=== PATIENT | female | born 1990 | race Caucasian/White ===

== ENCOUNTER 2018-03-12 22:41 | Emergency (ER) | payer OTHER ==
[2018-03-12] MEDS ORDERED: DIPH,PERTUS(ACELL)TETVAC-LF 0.5 ML VIAL IM ONE (23:56)
--- NOTE | 2018-03-13 00:41 | ED ---
Wound/Laceration HPI - General Chief Complaint: Wound/Laceration Stated Complaint: leg lac Time Seen by Provider: 03/12/18 23:35 Source: patient, family, RN notes reviewed Mode of arrival: ambulatory Limitations: no limitations - History of Present Illness Initial Comments: This is a 28-year-old female who presented to the emergency department with chief complaint of left leg laceration. Patient states that prior to arrival she was making her bed. There is a whitish sticking out of the back of her couch and accidentally lacerated the back of her left leg on it. Patient states that she does not believe she is up-to-date with tetanus vaccination. Denies any other injuries or trauma. Denies fever, chills, chest pain, shortness of breath, abdominal pain, nausea or vomiting, constipation or diarrhea, dysuria or hematuria, numbness or tingling, headache or vision changes. - Related Data Home Medications Medication Instructions Recorded Confirmed ALPRAZolam [Xanax] 0.5 mg PO Q8HR 03/12/18 03/12/18 DULoxetine HCL [Cymbalta] 40 mg PO DAILY 03/12/18 03/12/18 clonazePAM [KlonoPIN] 0.5 mg PO TID 03/12/18 03/12/18 Allergies Allergy/AdvReac Type Severity Reaction Status Date / Time No Known Allergies Allergy Verified 03/12/18 22:46 Review of Systems ROS Statement: Those systems with pertinent positive or pertinent negative responses have been documented in the HPI. ROS Other: All systems not noted in ROS Statement are negative. Past Medical History Past Medical History: No Reported History History of Any Multi-Drug Resistant Organisms: None Reported Additional Past Surgical History / Comment(s): eye surgery Past Anesthesia/Blood Transfusion Reactions: No Reported Reaction Past Psychological History: Anxiety, Bipolar, Depression, Panic Disorder, Schizophrenia Smoking Status: Never smoker Past Alcohol Use History: Occasional Past Drug Use History: None Reported - Past Family History Father History Unknown: Yes General Exam - General Exam Comments Initial Comments: General: Awake and alert, well-developed; in no apparent distress. HEENT: Head atraumatic, normocephalic. Pupils are equal, round and reactive to light. Extraocular movements intact. Oropharynx moist without erythema or exudate. Neck: Supple. Normal ROM. Cardiovascular: Regular rate and rhythm. No murmurs, rubs or gallops. Chest symmetrical. Respiratory: Lungs clear to auscultation bilaterally. No wheezes, rales or rhonchi. Normal respiratory effort with no use of accessory muscles. Musculoskeletal: Normal ROM, no tenderness bilateral upper and lower extremities. Ambulating normally. Skin: Morley, warm and dry without rashes. Approximately 2.0 cm linear laceration mid lateral aspect of left thigh. No active bleeding. Neurological: Alert and oriented x3. CN II-XII grossly intact. Speech is fluent and answers are appropriate. No focal neuro deficits. Psychiatric: Normal mood and affect. No overt signs of depression or anxiety noted. Limitations: no limitations Course Vital Signs 03/12/18 22:43 Temperature 100 F H Pulse Rate 104 H Respiratory 20 Rate Blood Pressure 122/82 O2 Sat by Pulse 99 Oximetry Procedures - Laceration Laceration #1 Consent Obtained: verbal consent Indication: laceration Site: lower extremity (Left lateral thigh) Size (cm): 2 Description: linear Depth: simple, single layer Anesthetic Used: lidocaine 1% Anesthesia Technique: local infiltration Amount (mls): 7 Pre-repair: wound explored, irrigated extensively, deep structures intact Type of Sutures: nylon Size of Sutures: 4-0 Number of Sutures: 4 Technique: simple, interrupted Patient Tolerated Procedure: well, no complications Medical Decision Making - Medical Decision Making This is a 28-year-old female who presented to the emergency department chief complaint left leg laceration. Patient lacerated the lateral aspect of her left thigh and appears wire sticking out of her couch. Patient was made up-to- date with tetanus vaccination. 4 sutures were placed and patient tolerated well without complication. Recommended removal of sutures in the next 10-14 days. Patient is in no acute distress and will be discharged home at this time. She is in agreement with plan and voices understanding. All questions were answered. Disposition Clinical Impression: Laceration Disposition: HOME SELF-CARE Condition: Good Instructions: Laceration (ED) Additional Instructions: Please have sutures removed in 10-14 days. Please follow up with primary care provider within 1-2 days. Return to emergency department if symptoms should worsen or any concerns arise. Is patient prescribed a controlled substance at discharge?: No Referrals: None,Stated [Primary Care Provider] - 1-2 days Time of Disposition: 01:05
[2018-03-13 02:01] VITALS: BP 120/73; PULSE 85; RESP 17; TEMP 98.5
== END 2018-03-13 02:07 | disposition home or self-care (01) ==
LOC: EC 22:41
DX: S71.112A Laceration without foreign body, left thigh, initial encounter (principal); F31.9 Bipolar disorder, unspecified; F41.0 Panic disorder [episodic paroxysmal anxiety]; F20.9 Schizophrenia, unspecified; Z23 Encounter for immunization; Z79.899 Other long term (current) drug therapy; W01.0XXA Fall on same level from slipping, tripping and stumbling without subsequent striking against object, initial encounter; W26.8XXA Contact with other sharp object(s), not elsewhere classified, initial encounter; Y92.009 Unspecified place in unspecified non-institutional (private) residence as the place of occurrence of the external cause
CPT/HCPCS: 12001; 90471; 90715; 99282

== ENCOUNTER 2019-12-09 09:59 | Emergency (ER) | payer OTHER ==
[2019-12-09 10:15] VITALS: TEMP 97.7
--- NOTE | 2019-12-09 10:58 | ED ---
General Adult HPI - General Chief complaint: Headache Stated complaint: migraines/nose bleeds Time Seen by Provider: 12/09/19 10:25 Source: patient, RN notes reviewed Mode of arrival: ambulatory Limitations: no limitations - History of Present Illness Initial comments: 29-year-old female presents to the emergency department for a chief complaint of left-sided headache. Patient states she has had a headache behind her left eye and into her left forehead for about 2-3 weeks now. States the pain has been persistent. Denies any waxing or waning pain. It does not seem to go away. States this came on gradually, no thunderclap or maximal intensity at onset. Denies any neck stiffness. Patient states that shortly after this headache started she started to get an upper respiratory infection. States she was very congested. Patient was placed on a Z-Yordan about 2-1/2 weeks ago. States this did not help either. Patient states her congestion has improved however she still has this left-sided headache. Patient states she has also had intermittent nosebleeds over the past several months. No bleeding at this time.Patient has no other complaints at this time including shortness of breath, chest pain, abdominal pain, nausea or vomiting, or visual changes. - Related Data Home Medications Medication Instructions Recorded Confirmed ALPRAZolam [Xanax] 0.5 mg PO Q8HR 03/12/18 03/12/18 DULoxetine HCL [Cymbalta] 40 mg PO DAILY 03/12/18 03/12/18 clonazePAM [KlonoPIN] 0.5 mg PO TID 03/12/18 03/12/18 Previous Rx's Medication Instructions Recorded Amoxicillin/Potassium Clav 1 tab PO Q12HR #20 tab 12/09/19 [Augmentin 875-125 Tablet] Allergies Allergy/AdvReac Type Severity Reaction Status Date / Time No Known Allergies Allergy Verified 12/09/19 10:11 Review of Systems ROS Statement: Those systems with pertinent positive or pertinent negative responses have been documented in the HPI. ROS Other: All systems not noted in ROS Statement are negative. Past Medical History Past Medical History: No Reported History History of Any Multi-Drug Resistant Organisms: None Reported Additional Past Surgical History / Comment(s): eye surgery Past Anesthesia/Blood Transfusion Reactions: No Reported Reaction Past Psychological History: No Psychological Hx Reported, Anxiety, Bipolar, Depression, Panic Disorder, Schizophrenia Smoking Status: Never smoker Past Alcohol Use History: Occasional Past Drug Use History: None Reported - Past Family History Father History Unknown: Yes General Exam Limitations: no limitations General appearance: alert, in no apparent distress (well appearing, sitting up in bed, no acute distress) Head exam: Present: atraumatic, normocephalic, normal inspection Eye exam: Present: normal appearance, PERRL, EOMI. Absent: scleral icterus, conjunctival injection, periorbital swelling ENT exam: Present: normal exam, mucous membranes moist Neck exam: Present: normal inspection, full ROM. Absent: tenderness, meningismus, lymphadenopathy Respiratory exam: Present: normal lung sounds bilaterally. Absent: respiratory distress, wheezes, rales, rhonchi, stridor Cardiovascular Exam: Present: regular rate, normal rhythm, normal heart sounds. Absent: systolic murmur, diastolic murmur, rubs, gallop, clicks Neurological exam: Present: alert, oriented X3, normal gait, other (GCS 15) Psychiatric exam: Present: normal affect, normal mood Course Vital Signs 12/09/19 10:11 Temperature 97.7 F Pulse Rate 82 Respiratory 18 Rate Blood Pressure 108/70 O2 Sat by Pulse 98 Oximetry Medical Decision Making - Medical Decision Making CT brain shows no acute intercranial hemorrhage. There is mild mucosal thickening left greater than right of the bilateral maxillary sinuses. Given symptoms of congestion patient will be treated with Augmentin as this will treat sinusitis better than azithromycin. Patient will follow up with primary care tomorrow. Patient refuses IM pain medicine at this time and states she would rather go home and take her Motrin. - Lab Data Lab Results 12/09/19 12/09/19 Range/Units 10:36 10:36 Urine Color Light Yellow Urine Appearance Clear (Clear) Urine pH 5.5 (5.0-8.0) Ur Specific [place] 1.012 (1.001-1.035) Urine Protein Negative (Negative) Urine Glucose (UA) Negative (Negative) Urine Ketones Negative (Negative) Urine Blood Negative (Negative) Urine Nitrite Negative (Negative) Urine Bilirubin Negative (Negative) Urine Urobilinogen <2.0 (<2.0) mg/dL Ur Leukocyte Esterase Trace H (Negative) Urine RBC 1 (0-5) /hpf Urine WBC 1 (0-5) /hpf Ur Squamous Epith Cells 3 (0-4) /hpf Urine Bacteria Rare H (None) /hpf Urine HCG, Qual Not Detected (Not Detectd) Disposition Clinical Impression: Sinusitis, Headache Disposition: HOME SELF-CARE Condition: Good Instructions (If sedation given, give patient instructions): Acute Headache (ED), Sinusitis (ED) Additional Instructions: Please take Augmentin as directed. Continue to take Motrin and Tylenol for pain. Follow up with primary care tomorrow. Return if you have any worsening symptoms or develop fevers or facial swelling. Prescriptions: Amoxicillin/Potassium Clav [Augmentin 875-125 Tablet] 1 tab PO Q12HR #20 tab Is patient prescribed a controlled substance at d/c from ED?: No Referrals: Clau Yañez MD [Primary Care Provider] - 1-2 days Time of Disposition: 12:41
[2019-12-09 11:02] LABS: Appearance,Urine Clear (Clear); Bacteria,Urine Rare /hpf; Bilirubin,Urine Negative (Negative); Blood,Urine Negative (Negative); Color,Urine Light Yellow; Glucose,Urine (UA) Negative (Negative); Ketones,Urine Negative (Negative); Leukocyte Esterase,Urine Trace (Negative); Nitrite,Urine Negative (Negative); PH, Urine 5.5 (5.0-8.0); Protein,Urine Negative (Negative); RBC,Urine 1 /hpf (0-5); Specific Gravity,Urine 1.012 (1.001-1.035); Squamous Epithelial Cell,Urine 3 /hpf (0-4); Urobilinogen,Urine <2.0 mg/dL (<2.0); WBC,Urine 1 /hpf (0-5)
--- NOTE | 2019-12-09 12:25 | CT ---
EXAMINATION TYPE: CT brain wo con DATE OF EXAM: 12/09/2019 COMPARISON: None. HISTORY: Headache 3 weeks with nose bleeds CT DLP: 1056.4 mGycm. Automated Exposure Control for Dose Reduction was Utilized. TECHNIQUE: CT scan of the head is performed without contrast. FINDINGS: There is no acute intracranial hemorrhage, mass effect, or midline shift identified. The ventricles and sulci are within normal limits in size. Segundo-white matter differentiation is maintain ed. Mild mucosal thickening left greater than right bilateral maxillary sinuses is partially imaged o therwise paranasal sinuses are clear. The globes are intact bilaterally. IMPRESSION: No acute intracranial hemorrhage or midline shift is seen.
[2019-12-09] MEDS ORDERED: KETOROLAC 30 MG/ML 1 ML VIAL IM STA (12:28)
[2019-12-09 12:49] VITALS: BP 114/78; PULSE 69
[2019-12-09 12:53] VITALS: RESP 15
== END 2019-12-09 12:53 | disposition home or self-care (01) ==
LOC: EC 09:59
DX: J32.9 Chronic sinusitis, unspecified (principal); F31.9 Bipolar disorder, unspecified; F41.0 Panic disorder [episodic paroxysmal anxiety]; Z79.899 Other long term (current) drug therapy
CPT/HCPCS: 70450; 81001; 81025; 99284

== ENCOUNTER → 2021-03-13 | Outpatient (CLI) | payer OTHER ==
--- NOTE | 2021-03-13 21:24 | MR ---
EXAMINATION TYPE: MR brain wo con DATE OF EXAM: 03/13/2021 COMPARISON: CT brain 12/09/2019 HISTORY: Headaches, bloody nose, twitchy eyes Multiplanar multiecho imaging of the brain was performed without contrast. Ventricles and sulci appear normal. There is no mass effect nor midline shift. There is no sign of in tracranial hemorrhage. Diffusion images show no evidence of an acute infarct. Brainstem is intact. Th e corpus callosum appears normal. Sella turcica is normal. There is no evidence of cerebral edema. Gr ay-white matter structures have fairly normal signal pattern. There is no evidence of posterior fossa mass. IMPRESSION: Negative MR scan of the brain. No change.
== END | disposition home or self-care (01) ==
LOC: RADMRIMAIN 14:50
PROVIDERS: ATTEND Nurse Practitioner Family
DX: R42 Dizziness and giddiness (principal)
CPT/HCPCS: 70551

== ENCOUNTER → 2021-04-14 | Outpatient (CLI) | payer OTHER ==
--- NOTE | 2021-04-14 13:06 | CONS ---
CONSULTATION DATE OF SERVICE: 04/14/2021 This 31-year-old lady has been evaluated in the sleep center for possible obstructive sleep apnea-hypopnea syndrome and excessive daytime sleepiness. HISTORY OF PRESENT ILLNESS/SLEEP-WAKE EVALUATION: Patient's usual sleep schedule on weekdays from midnight until 7 a.m. and on weekends from 1 a.m. until 9 a.m. No problems with falling asleep, although she has TV set in bedroom. She sleeps usually on the side position. She has very loud snoring and witnessed episodes of stopped breathing during sleep. She also wakes up with episodes of gasping for air, sweating, grinding teeth, panic attacks, and nocturia. No history of hypnagogic hallucinations, sleep paralysis or cataplexy. [place] Sleepiness Scale increased to 11. The patient explained that she always feels tiredness and sleepiness. Usually she does not take naps during the daytime. PAST MEDICAL HISTORY: Positive for anxiety, hyperlipidemia. PAST SURGICAL HISTORY: Bilateral LASIK surgery. SOCIAL HISTORY: Negative for smoking, alcohol consumption occasional. MEDICATIONS: Adipex, Lipitor, Pristiq, Xanax, vitamin D. REVIEW OF SYSTEMS: Snoring, awakenings from sleep gasping for air, sleepiness during the day. No fevers. No double vision. No recent chest pain. No shortness of breath. No abdominal pain. No bleeding episodes. No blood in the urine. No seizure episodes. PHYSICAL EXAMINATION: GENERAL: lady without distress. VITAL SIGNS: BP 131/68, HR 86, RR 12, height 5 feet 7 inches, weight 158.2, temperature 97.9, body mass index 24.4, oxygen saturation at room air 98%. HEENT: PERRLA, EOMI. Oropharynx low position of soft palate. Mallampati 3. NECK: 14- 1/4 inches in circumference. LUNGS: Clear to percussion and to auscultation. Good air exchange. No wheezing or rhonchi. HEART: S1, S2 regular. No murmurs, gallops, or rubs. ABDOMEN: Soft and nontender. Bowel sounds are present. No organomegaly appreciated. EXTREMITIES: No clubbing or cyanosis. LEGAL COMPLIANCE OFFICER: Awake, alert, and oriented X3. Cranial nerves 2 to 7 intact. There is no fasciculation or atrophy. noted. No focal deficits observed. IMPRESSION: 1. Loud snoring, witnessed episodes of stopped breathing during sleep, low position of soft palate, Mallampati 3. Excessive daytime sleepiness. Troy Sleepiness Scale increased to 11. Obstructive sleep apnea-hypopnea syndrome. 2. Hyperlipidemia. 3. Anxiety. 4. Status post LASIK surgery bilaterally. PLAN: 1. Polysomnography for evaluation of patient breathing during the sleep. 2. CPAP/BiPAP titration if sleep study confirms obstructive sleep apnea-hypopnea syndrome. 3. Preferable position during sleep on the side. 4. No driving if patient feels any sleepiness. 5. I will see patient for follow up visit to explain results of testing and following plan. 6. If sleep study will show that the patient is negative for obstructive sleep apnea- hypopnea syndrome, she could be a candidate for multiple sleep latency test for objective evaluation for sleepiness. Thank you very much for referring this patient for consultation. Sincerely, Jb Salamanca MD, PhD, FAASM Diplomat of [place] [employer] [place] [employer] Bill Adjuster of [facility] [place] MMODL / CHELSEAN: [id number] /
== END ==
CPT/HCPCS: 99211

== ENCOUNTER 2021-09-19 18:31 | Observation (INO) | payer OTHER ==
[2021-09-19 20:39] LABS: Basophils % (A) 0 %; Eosinophils # (A) 0.1 k/uL (0-0.7); Eosinophils % (A) 1 %; HCT 42.4 % (34.0-46.0); HGB 14.2 gm/dL (11.4-16.0); Lymphocytes # (A) 1.6 k/uL (1.0-4.8); Lymphocytes % (A) 15 %; MCH 30.7 pg (25.0-35.0); MCHC 33.5 g/dL (31.0-37.0); MCV 91.7 fL (80.0-100.0); Mean Platelet Volume 6.8; Monocytes # (A) 0.4 k/uL (0-1.0); Monocytes % (A) 4 %; Neutrophils # (A) 8.4 k/uL (1.3-7.7); Neutrophils % (A) 79 %; Platelet Count 230 k/uL (150-450); RBC 4.63 m/uL (3.80-5.40); WBC 10.7 k/uL (3.8-10.6)
[2021-09-19 20:54] LABS: ALT 14 U/L (4-34); AST 20 U/L (14-36); African American GFR (CKD) >90 (>60 ml/min/1.73 sqM); Albumin 4.7 g/dL (3.5-5.0); Alkaline Phosphatase 70 U/L (38-126); Anion Gap 11 mmol/L; Blood Urea Nitrogen 12 mg/dL (7-17); Calcium 10.1 mg/dL (8.4-10.2); Carbon Dioxide 23 mmol/L (22-30); Chloride 104 mmol/L (98-107); Glucose 110 mg/dL (74-99); Non-African American GFR(CKD) >90 (>60 ml/min/1.73 sqM); Potassium 3.8 mmol/L (3.5-5.1); Sodium 138 mmol/L (137-145); Total Bilirubin 0.3 mg/dL (0.2-1.3); Total Protein 7.9 g/dL (6.3-8.2)
[2021-09-19 21:34] LABS: Amorphous Sediment,Urine Moderate /hpf; Appearance,Urine Cloudy (Clear); Bilirubin,Urine Negative (Negative); Blood,Urine Negative (Negative); Color,Urine Light Yellow; Glucose,Urine (UA) Negative (Negative); Ketones,Urine Negative (Negative); Leukocyte Esterase,Urine Large (Negative); Mucus,Urine Rare /hpf; Nitrite,Urine Negative (Negative); Protein,Urine Trace (Negative); RBC,Urine 2 /hpf (0-5); Specific Gravity,Urine 1.019 (1.001-1.035); Squamous Epithelial Cell,Urine 11 /hpf (0-4); Urobilinogen,Urine <2.0 mg/dL (<2.0); WBC,Urine 9 /hpf (0-5)
[2021-09-19] MEDS ORDERED: SODIUM CHLORIDE 0.9% 1,000 ML IV ONE (22:45)
[2021-09-19] MEDS ORDERED: IBUPROFEN 400 MG TAB PO PRN (22:53)
[2021-09-19] MEDS ORDERED: ACETAMINOPHEN TAB 325 MG TAB PO PRN (22:53)
[2021-09-19] MEDS ORDERED: NALOXONE 0.4 MG/ML 1 ML VIAL IV PRN (22:53)
--- NOTE | 2021-09-19 22:53 | ED ---
Skin/Abscess/FB HPI - General Chief complaint: Skin/Abscess/Foreign Body Stated complaint: Nexplanon arm infection Time Seen by Provider: 09/19/21 19:40 Source: patient Mode of arrival: ambulatory Limitations: no limitations - History of Present Illness Initial comments: Putting [id number] female presents emergency department after she had a Nexplanon placed on in Dr. Gaines office. Shortly afterwards the patient began developing redness, swelling and warmth to the extremity. She called Dr. Gaines office today who recommended that she come into the emergency room for evaluation. She does arrive with a temp of 100.7. Area is tense, i ndurated and warm. Areas outlined with a tissue marker. Patient denies any recorded fevers at home. Not currently on any antibiotics. Denies any other source for fever. No other alleviating, health/safety job titles modifying factors - Related Data Home Medications Medication Instructions Recorded Confirmed ALPRAZolam [Xanax] 0.5 mg PO HS PRN 03/12/18 09/19/21 Atorvastatin [Lipitor] 10 mg PO HS 09/19/21 09/19/21 Desvenlafaxine [Pristiq ER] 100 mg PO HS 09/19/21 09/19/21 Dextroamphetamine/Amphetamine 20 mg PO DAILY 09/19/21 09/19/21 [Dextroamp-Amphetamin 20 mg Tab] Ergocalciferol [Vitamin D2 (1250 1,250 mcg PO MO 09/19/21 09/19/21 Mcg = 77722 Iu)] Ibuprofen [Motrin] 800 mg PO BID PRN 09/19/21 09/19/21 Levocetirizine Dihydrochloride 5 mg PO HS 09/19/21 09/19/21 [Xyzal] Allergies Allergy/AdvReac Type Severity Reaction Status Date / Time No Known Allergies Allergy Verified 09/19/21 23:11 Review of Systems ROS Statement: Those systems with pertinent positive or pertinent negative responses have been documented in the HPI. ROS Other: All systems not noted in ROS Statement are negative. Past Medical History Past Medical History: No Reported History History of Any Multi-Drug Resistant Organisms: None Reported Additional Past Surgical History / Comment(s): eye surgery Past Anesthesia/Blood Transfusion Reactions: No Reported Reaction Past Psychological History: No Psychological Hx Reported, Anxiety, Bipolar, Depression, Panic Disorder, Schizophrenia Smoking Status: Vaper Past Alcohol Use History: Occasional Past Drug Use History: None Reported - Past Family History Father History Unknown: Yes General Exam Limitations: no limitations General appearance: alert, in no apparent distress, anxious Respiratory exam: Present: normal lung sounds bilaterally. Absent: respiratory distress, wheezes, rales, rhonchi, stridor Cardiovascular Exam: Present: normal rhythm, tachycardia GI/Abdominal exam: Present: soft, normal bowel sounds. Absent: distended, tenderness, guarding, rebound, rigid Extremities exam: Present: other (grapefruit sized induration distal left forearm. warm, swollen, indurated to the touch. No fluctuance or drainage appreciated. Compartments soft. 2+ radial and ulnar pulses) Course Vital Signs 09/19/21 19:37 Temperature 100.7 F H Pulse Rate 100 Respiratory 18 Rate Blood Pressure 125/76 O2 Sat by Pulse 98 Oximetry Medical Decision Making - Medical Decision Making Upon arrival patient was placed into a weight gain. IV is established and laboratory studies were conducted. White count 10.7. Lactic acid 0.9. I did call and speak with Dr. Flores. Recommended the patient begin IV antibiotics due to the extent of infection. I did discuss this with the patient. Started on Ancef. Patient will be admitted to Dr. Flores who will remove device after patient has already received some IV antibiotics. Patient agreed to this plan and was taken the the floor in stable condition. - Lab Data Result diagrams: 09/19/21 20:30 09/19/21 20:30 Lab Results 09/19/21 09/19/21 09/19/21 Range/Units 20:00 20:30 20:30 WBC 10.7 H (3.8-10.6) k/uL RBC 4.63 (3.80-5.40) m/uL Hgb 14.2 (11.4-16.0) gm/dL Hct 42.4 (34.0-46.0) % MCV 91.7 (80.0-100.0) fL MCH 30.7 (25.0-35.0) pg MCHC 33.5 (31.0-37.0) g/dL RDW 12.0 (11.5-15.5) % Plt Count 230 (150-450) k/uL MPV 6.8 Neutrophils % 79 % Lymphocytes % 15 % Monocytes % 4 % Eosinophils % 1 % Basophils % 0 % Neutrophils # 8.4 H (1.3-7.7) k/uL Lymphocytes # 1.6 (1.0-4.8) k/uL Monocytes # 0.4 (0-1.0) k/uL Eosinophils # 0.1 (0-0.7) k/uL Basophils # 0.0 (0-0.2) k/uL Sodium 138 (137-145) mmol/L Potassium 3.8 (3.5-5.1) mmol/L Chloride 104 (98-107) mmol/L Carbon Dioxide 23 (22-30) mmol/L Anion Gap 11 mmol/L BUN 12 (7-17) mg/dL Creatinine 0.64 (0.52-1.04) mg/dL Est GFR (CKD-EPI)AfAm >90 (>60 ml/min/1.73 sqM) Est GFR (CKD-EPI)NonAf >90 (>60 ml/min/1.73 sqM) Glucose 110 H (74-99) mg/dL Plasma Lactic Acid Lenny 0.8 (0.7-2.0) mmol/L Calcium 10.1 (8.4-10.2) mg/dL Total Bilirubin 0.3 (0.2-1.3) mg/dL AST 20 (14-36) U/L ALT 14 (4-34) U/L Alkaline Phosphatase 70 (38-126) U/L Total Protein 7.9 (6.3-8.2) g/dL Albumin 4.7 (3.5-5.0) g/dL Urine Color Urine Appearance (Clear) Urine pH (5.0-8.0) Ur Specific [place] (1.001-1.035) Urine Protein (Negative) Urine Glucose (UA) (Negative) Urine Ketones (Negative) Urine Blood (Negative) Urine Nitrite (Negative) Urine Bilirubin (Negative) Urine Urobilinogen (<2.0) mg/dL Ur Leukocyte Esterase (Negative) Urine RBC (0-5) /hpf Urine WBC (0-5) /hpf Ur Squamous Epith Cells (0-4) /hpf Amorphous Sediment (None) /hpf Urine Mucus (None) /hpf Urine HCG, Qual (Not Detectd) Coronavirus (PCR) (Not Detectd) 09/19/21 09/19/21 09/19/21 Range/Units 21:24 21:24 22:52 WBC (3.8-10.6) k/uL RBC (3.80-5.40) m/uL Hgb (11.4-16.0) gm/dL Hct (34.0-46.0) % MCV (80.0-100.0) fL MCH (25.0-35.0) pg MCHC (31.0-37.0) g/dL RDW (11.5-15.5) % Plt Count (150-450) k/uL MPV Neutrophils % % Lymphocytes % % Monocytes % % Eosinophils % % Basophils % % Neutrophils # (1.3-7.7) k/uL Lymphocytes # (1.0-4.8) k/uL Monocytes # (0-1.0) k/uL Eosinophils # (0-0.7) k/uL Basophils # (0-0.2) k/uL Sodium (137-145) mmol/L Potassium (3.5-5.1) mmol/L Chloride (98-107) mmol/L Carbon Dioxide (22-30) mmol/L Anion Gap mmol/L BUN (7-17) mg/dL Creatinine (0.52-1.04) mg/dL Est GFR (CKD-EPI)AfAm (>60 ml/min/1.73 sqM) Est GFR (CKD-EPI)NonAf (>60 ml/min/1.73 sqM) Glucose (74-99) mg/dL Plasma Lactic Acid Lenny (0.7-2.0) mmol/L Calcium (8.4-10.2) mg/dL Total Bilirubin (0.2-1.3) mg/dL AST (14-36) U/L ALT (4-34) U/L Alkaline Phosphatase (38-126) U/L Total Protein (6.3-8.2) g/dL Albumin (3.5-5.0) g/dL Urine Color Light Yellow Urine Appearance Cloudy H (Clear) Urine pH 7.0 (5.0-8.0) Ur Specific [place] 1.019 (1.001-1.035) Urine Protein Trace H (Negative) Urine Glucose (UA) Negative (Negative) Urine Ketones Negative (Negative) Urine Blood Negative (Negative) Urine Nitrite Negative (Negative) Urine Bilirubin Negative (Negative) Urine Urobilinogen <2.0 (<2.0) mg/dL Ur Leukocyte Esterase Large H (Negative) Urine RBC 2 (0-5) /hpf Urine WBC 9 H (0-5) /hpf Ur Squamous Epith Cells 11 H (0-4) /hpf Amorphous Sediment Moderate H (None) /hpf Urine Mucus Rare H (None) /hpf Urine HCG, Qual Not Detected (Not Detectd) Coronavirus (PCR) Not Detected (Not Detectd) Disposition Clinical Impression: Nexplanon insertion, Cellulitis Disposition: ADMITTED IP TO THIS HOSP Condition: Good Is patient prescribed a controlled substance at d/c from ED?: No Decision to Admit Reason: Admit from EC Decision Date: 09/19/21 Decision Time: 22:53
[2021-09-19] MEDS ORDERED: ACETAMINOPHEN TAB 500 MG TAB PO STA (22:57)
[2021-09-19] MEDS: SODIUM CHLORIDE 0.9% 1,000 ML IV SCH (23:14)
[2021-09-20] MEDS ORDERED: ALPRAZolam 0.5 MG TAB PO PRN (00:48)
[2021-09-20] MEDS ORDERED: ATORVASTATIN 10 MG TAB PO SCH (01:00)
[2021-09-20] MEDS ORDERED: LORATADINE 10 MG TAB PO SCH (01:00)
[2021-09-20] MEDS ORDERED: DESVENLAFAXINE SUCCINATE 50 MG TAB.ER.24H PO SCH (01:00)
[2021-09-20] MEDS ORDERED: HYDROcodone/APAP 5-325MG 1 EACH TAB PO PRN ×2 (05:07)
--- NOTE | 2021-09-20 05:26 | P.HPOB ---
History of Present Illness H&P Date: 09/20/21 Chief Complaint: Left arm cellulitis 31-year-old non patient that called the on-call pager around 11 AM on Wednesday 09/19 with complaints of left arm erythema and tenderness to touch. Patient had a Inserted on . Patient was counseled on the need to go to the emergency department. Patient presented to the emergency department around 10:00 that night. On filling physical exam by the emergency department physician a large "grapefruit size" area of induration was appreciated. Patient was requesting removal of On at that time. Patient denied fevers or chills. Patient did have a temp in the emergency department of 100.7. White count of 10.7. Review of Systems Constitutional: Denies chills, Denies fatigue, Denies fever Ears, nose, mouth and throat: Denies headache Respiratory: Denies dyspnea Genitourinary: Denies Past Medical History Past Medical History: No Reported History History of Any Multi-Drug Resistant Organisms: None Reported Additional Past Surgical History / Comment(s): eye surgery Past Anesthesia/Blood Transfusion Reactions: No Reported Reaction Past Psychological History: No Psychological Hx Reported, Anxiety, Bipolar, Depression, Panic Disorder, Schizophrenia Smoking Status: Vaper Past Alcohol Use History: Occasional Past Drug Use History: None Reported - Past Family History Father History Unknown: Yes Medications and Allergies Home Medications Medication Instructions Recorded Confirmed Type ALPRAZolam [Xanax] 0.5 mg PO HS PRN 03/12/18 09/19/21 History Atorvastatin [Lipitor] 10 mg PO HS 09/19/21 09/19/21 History Desvenlafaxine [Pristiq ER] 100 mg PO HS 09/19/21 09/19/21 History Dextroamphetamine/Amphetamine 20 mg PO DAILY 09/19/21 09/19/21 History [Dextroamp-Amphetamin 20 mg Tab] Ergocalciferol [Vitamin D2 (1250 1,250 mcg PO MO 09/19/21 09/19/21 History Mcg = 76504 Iu)] Ibuprofen [Motrin] 800 mg PO BID PRN 09/19/21 09/19/21 History Levocetirizine Dihydrochloride 5 mg PO HS 09/19/21 09/19/21 History [Xyzal] Allergies Allergy/AdvReac Type Severity Reaction Status Date / Time No Known Allergies Allergy Verified 09/19/21 23:11 Exam Osteopathic Statement: *. No significant issues noted on an osteopathic structural exam other than those noted in the History and Physical/Consult. 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 Area is approximately the size of a cough ball at this point, immediately over the site of the nexplanon. Results Result Diagrams: 09/19/21 20:30 09/19/21 20:30 Abnormal Lab Results - Last 24 Hours (Table) 09/19/21 09/19/21 09/19/21 Range/Units 20:30 20:30 21:24 WBC 10.7 H (3.8-10.6) k/uL Neutrophils # 8.4 H (1.3-7.7) k/uL Glucose 110 H (74-99) mg/dL Urine Appearance Cloudy H (Clear) Urine Protein Trace H (Negative) Ur Leukocyte Esterase Large H (Negative) Urine WBC 9 H (0-5) /hpf Ur Squamous Epith Cells 11 H (0-4) /hpf Amorphous Sediment Moderate H (None) /hpf Urine Mucus Rare H (None) /hpf Assessment and Plan (1) Cellulitis Current Visit: Yes Status: Acute Code(s): L03.90 - CELLULITIS, UNSPECIFIED SNOMED Code(s): 147349996 Plan: 31-year-old female that presents to the emergency department with left arm cellulitis status post nexplanon insertion on . IV antibiotics are begun, will monitor induration through the day ideally would like 24 hours of antibiotics and transitioned over to oral. Patient is anxious about staying in the hospital, discussed need to treat infection prior to removal of the device. Questions are answered patient states understanding.
[2021-09-20] MEDS ORDERED: ERGOCALCIFEROL 1,250 MCG (50,000 IU) CAPSULE PO SCH (09:00)
[2021-09-20] MEDS ORDERED: NON FORMULARY DRUG (Dextroamphetamine/Amphetamine [Dextroamp-Amphetamin 20 Mg Tab] 20 MG T PO SCH (09:00)
[2021-09-20] MEDS: SODIUM CHLORIDE 0.9% 1,000 ML IV SCH (14:07)
[2021-09-20 14:18] VITALS: BP 112/70; PULSE 98; RESP 22; TEMP 98.4
--- NOTE | 2021-09-29 15:39 | P.DS ---
Providers Date of admission: 09/19/21 22:53 Expected date of discharge: 09/20/21 Attending physician: Kathia Flores Primary care physician: Alisha Calles - Discharge Diagnosis(es) (1) Cellulitis Status: Acute Hospital Course: 31 yo female non patient that presented to the ED with c/o erythema and possible infection in her left arm. she had a nexplanon placed a few days prior in the office. she was notedin the ED to have a large orange size area of cellulitis that was raised nad warm to touch. she didnt have an elevated WBC on CBC in the ED. I did feel given the size of the cellitis she warrented IV antibiotic treatment. she was OBV for planned IV antibiotic treamtent for 24hours. she did elect to go home prior to her last dose as she needed to get to work. there was noted improvement by that time and she didnt have an elevated WBC at the time of discharge. This patient does struggle with anxiety and I do feel this played a role in her discharge as well. she did agree to close FU in the office as well. she was given po antibiotics and scheduled in 2 days in the office. Patient Condition at Discharge: Good Plan - Discharge Summary Discharge Rx Participant: Yes New Discharge Prescriptions: No Action ALPRAZolam [Xanax] 0.5 mg PO HS PRN PRN Reason: INSOMNIA/ANXIETY Atorvastatin [Lipitor] 10 mg PO HS Levocetirizine Dihydrochloride [Xyzal] 5 mg PO HS Ergocalciferol [Vitamin D2 (1250 Mcg = 92371 Iu)] 1,250 mcg PO MO Desvenlafaxine [Pristiq ER] 100 mg PO HS Dextroamphetamine/Amphetamine [Dextroamp-Amphetamin 20 mg Tab] 20 mg PO DAILY Ibuprofen [Motrin] 800 mg PO BID PRN PRN Reason: Pain Discharge Medication List ALPRAZolam [Xanax] 0.5 mg PO HS PRN 03/12/18 [History] Atorvastatin [Lipitor] 10 mg PO HS 09/19/21 [History] Desvenlafaxine [Pristiq ER] 100 mg PO HS 09/19/21 [History] Dextroamphetamine/Amphetamine [Dextroamp-Amphetamin 20 mg Tab] 20 mg PO DAILY 09/19/21 [History] Ergocalciferol [Vitamin D2 (1250 Mcg = 65644 Iu)] 1,250 mcg PO MO 09/19/21 [History] Ibuprofen [Motrin] 800 mg PO BID PRN 09/19/21 [History] Levocetirizine Dihydrochloride [Xyzal] 5 mg PO HS 09/19/21 [History] Follow up Appointment(s)/Referral(s): Alisha Calles DO [Primary Care Provider] - 1-2 days Kathia Flores DO [Doctor of Osteopathic Medicine] - 09/23/21 3:00 pm Activity/Diet/Wound Care/Special Instructions: regular diet . drink fluids. activity as tolerated. light activity with left arm. take antibiotics as presecribed until completed. ( may try yogurt while on antibiotics.) call the office sooner with any worsening of the symptoms that brought you here or any concerns, or return to ER. good hand washing. Last received Motrin 400mg at 2 PM Take first dose of oral antibiotic tonight. Discharge Disposition: HOME SELF-CARE
== END 2021-09-20 16:30 | disposition home or self-care (01) ==
LOC: EC 18:31 → 6PED 22:53 → INTOOBSV 22:53 → UNDODISIN 09-20 16:30
PROVIDERS: ADMIT Obstetrics & Gynecology Obstetrics; ATTEND Obstetrics & Gynecology Obstetrics
DX: T81.41XA Infection following a procedure, superficial incisional surgical site, initial encounter (principal); L03.114 Cellulitis of left upper limb; Z97.5 Presence of (intrauterine) contraceptive device; F31.9 Bipolar disorder, unspecified; F20.9 Schizophrenia, unspecified; F41.9 Anxiety disorder, unspecified; F41.0 Panic disorder [episodic paroxysmal anxiety]; Z79.899 Other long term (current) drug therapy; Y76.1 Therapeutic (nonsurgical) and rehabilitative obstetric and gynecological devices associated with adverse incidents
CPT/HCPCS: 96361 ×2; 96365; 96366; 99284; 36415; 80053; 83605; 85025; 81001; 81025; 87040; 87635; G0378 ×2; J0690

== ENCOUNTER 2022-04-13 11:09 | Day surgery (SDC) | payer OTHER ==
[2022-04-12 09:46] VITALS: BMI 25.0
--- NOTE | 2022-04-12 14:08 | P.HPOR ---
History of Present Illness H&P Date: 04/12/22 Chief Complaint: Left carpal tunnel syndrome Subjective: This is a 31 year old female that presents today for follow up evaluation regarding a 1.5 year history of intermittent bilateral hand paresthesias. She states she has notice increasing frequency of her hand numbness, especially at night over the last 4 months. She notices the entire hands go numb when she keeps the wrist or elbow flexed for too long but notices immediate improvement after extending the elbow or wrist. She now had symptoms that are becoming persistent. She has been trying night splinting the last several months since initial evaluation but is no longer getting symptom relief. Her left side symptoms are more severe then the right. Physical Examination: RUE: AIN/PIN/Radial/Ulnar/Median motor intact. Radial/Ulnar/Median SILT. 2+/4 Radial/Ulnar pulses palpated. Negative Durkan's compression, negative tinels at wrist/ elbow. LUE: AIN/PIN/Radial/Ulnar/Median motor intact. Radial/Ulnar/Median SILT. 2+/4 Radial/Ulnar pulses palpated. Negative Durkan's compression, negative tinels at wrist/ elbow. Impression: 1.) B/L Carpal tunnel syndrome Plan: Diagnosis and treatment options were discussed with the patient. She has failed conservative treatment and would like to proceed with left endoscopic possible open carpal tunnel release. Risks and benefit of surgery including bleeding, infection, damage to surrounding tissue, need for further surgery, possible need to convert to open procedure, residual numbness were discussed and the patient wished to go forward with surgery. -Pipo Dunne DO Orthopedic Hand/Upper Extremity Surgeon Past Medical History Past Medical History: Musculoskeletal Disorder History of Any Multi-Drug Resistant Organisms: None Reported Additional Past Surgical History / Comment(s): lasik eye surgery w/no anethesia Past Anesthesia/Blood Transfusion Reactions: No Reported Reaction Additional Past Anesthesia/Blood Transfusion Reaction / Comment(s): no family problems w/anesthesia that she's aware of Smoking Status: Vaper - Past Family History Father History Unknown: Yes Medications and Allergies Home Medications Medication Instructions Recorded Confirmed Type ALPRAZolam [Xanax] 0.5 mg PO HS PRN 03/12/18 04/12/22 History Desvenlafaxine [Pristiq ER] 100 mg PO HS 09/19/21 04/12/22 History Dextroamphetamine/Amphetamine 20 mg PO DAILY 09/19/21 04/12/22 History [Dextroamp-Amphetamin 20 mg Tab] Etonogestrel [Nexplanon] 1 implant SQ [id number] 04/12/22 04/12/22 History Allergies Allergy/AdvReac Type Severity Reaction Status Date / Time No Known Allergies Allergy Verified 04/12/22 09:46 Physical Examination Osteopathic Statement: *. No significant issues noted on an osteopathic structural exam other than those noted in the History and Physical/Consult.
[~2022-04-13 11:09] MED LIST: LACTATED RINGERS 1,000 ML IV SCH; Pre Op ABX Message 1 EACH MISC MISCELLANE ONE
[2022-04-13 11:42] VITALS: BP 118/71; PULSE 87; RESP 16; TEMP 96.9
== END 2022-04-13 11:53 | disposition home or self-care (01) ==
LOC: OR 11:09
PROVIDERS: ATTEND Orthopaedic Surgery Hand Surgery
DX: G56.03 Carpal tunnel syndrome, bilateral upper limbs (principal); F17.290 Nicotine dependence, other tobacco product, uncomplicated; Z79.899 Other long term (current) drug therapy; Z98.890 Other specified postprocedural states; Z79.3 Long term (current) use of hormonal contraceptives; Z53.8 Procedure and treatment not carried out for other reasons